=== PATIENT | male | born 1995 | race African-American/Black ===

== ENCOUNTER 2017-01-30 22:33 | Emergency (ER) | payer SELFPAY ==
[~2017-01-30] VITALS: Ht 185.4 cm; Wt 97.5 kg
[2017-01-30 22:40] VITALS: BP 134/86
[2017-01-31] MEDS ORDERED: IBUPROFEN 600 MG TAB PO ONE (01:15)
== END 2017-01-31 01:35 | disposition home or self-care (01) ==
LOC: ER 22:33
DX: S82.831A Other fracture of upper and lower end of right fibula, initial encounter for closed fracture (principal); X58.XXXA Exposure to other specified factors, initial encounter; Y93.66 Activity, soccer; Y99.8 Other external cause status; Y92.89 Other specified places as the place of occurrence of the external cause
CPT/HCPCS: 73610